=== PATIENT | female | born 1995 | race Caucasian/White ===

== ENCOUNTER 2018-01-12 02:08 | Emergency (ER) | payer BC ==
[2018-01-12 03:46] LABS: #Eosinphils 0.2 thou/uL (0.0-0.7); #Lymphocytes 1.7 thou/uL (1.20-3.40); #Monocytes 0.5 thou/uL (0.11-0.59); #Neutrophils 4.1 thou/uL (1.40-6.50); %Basophils 0.6 % (0.0-1.0); %Eosinophils 3.2 % (0.0-10.0); %Lymphocytes 25.8 % (28.0-48.0); %Monocytes 7.6 % (0.0-4.0); %Neutrophils 62.7 % (31.0-61.0); Hemoglobin 13.8 g/dL (12.0-16.0); Mean Corpuscular HGB CONC 33.3 g/dL (32.0-36.0); Mean Corpuscular Hemoglobin 28.8 pg (25.0-35.0); Mean Corpuscular Volume 86.4 fl (77.0-87.0); Mean Platelet Volume 6.5 fL (7.4-10.4); Platelet Count 302 thou/uL (130-400); RBC Distribution Width 12.2 % (11.5-14.5); Red Blood Cell (RBC) Count 4.81 mill/uL (4.00-5.20); White Blood Cell (WBC) Count 6.5 thou/uL (4.8-10.8)
[2018-01-12 04:06] LABS: ALT (SGPT) 26 U/L (8-55); AST (SGOT) 30 U/L (5-34); Albumin 4.5 g/dL (3.5-5.0); Alkaline Phosphatase 66 U/L (40-150); Anion Gap 13 mmol/L (10-20); BUN (Urea Nitrogen) 7 mg/dL (7.0-18.7); Bilirubin, Total 0.3 mg/dL (0.2-1.2); Calc. Creatinine Clearance 0 mL/min (70-130); Calcium 8.8 mg/dL (7.8-10.44); Carbon Dioxide 23 mmol/L (22-29); Chloride 112 mmol/L (98-107); Estimated GFR-MDRD Greater than 90; Globulin 3.1 g/dL (2.4-3.5); Glucose 77 mg/dL (70-105); Potassium 3.5 mmol/L (3.5-5.1); Protein, Total 7.6 g/dL (6.0-8.3); Sodium 144 mmol/L (136-145)
[2018-01-12 04:07] LABS: Acetaminophen Less than 6.0 mcg/mL (10.0-30.0); Alcohol 395 mg/dL (Less than 10); Salicylate Less than 8.0 mg/dL (15.0-30.0)
[2018-01-12 04:13] LABS: BHCG - Serum Negative (NEGATIVE); Pregs Control Background? CLEAR/WHITE (CLR/WHITE); Pregs Control Bar Appear? YES (CONTROL BAR)
--- NOTE | 2018-01-12 13:49 | CT ---
PRELIMINARY REPORT/[facility]/EMERGENCY AFTER HOURS PROCEDURE: EXAM: CT Head Without Intravenous Contrast CLINICAL HISTORY: 22 years old, female; Signs and symptoms; Altered mental status/memory loss; Patient HX: [facility] Unknown if fell. A&o x 1. Told bystanders she took xanax. Obvious ETOH; Albaro tional info: Pt combative for exam TECHNIQUE: Axial computed tomography images of the head/brain without intravenous contrast. COMPARISON: No relevant prior studies available. FINDINGS: Brain: Somewhat limited evaluation at the level of the skull base due to motion and streak artifacts. Otherwise no evidence of hemorrhage, mass effect or edema. Ventricles: No ventriculomegaly. Bones/joints: No acute fracture. Soft tissues: No acute findings. Sinuses: Bilateral maxillary sinus mucosal thickening/mucus retention cysts. No significant air-fluid levels. Mastoid air cells: No significant fluid. IMPRESSION: No acute intracranial findings. Thank you for allowing us to participate in the care of your patient. Dictated and Authenticated by: Surya Redd MD 01/12/2018 4:37 AM Central Time ([place] & [place]) FINAL REPORT NONCONTRAST HEAD CT: Date: 01/12/18 HISTORY: Patient was found down at [place]. COMPARISON: None. TECHNIQUE: Noncontrast head CT is performed from skull base to skull vertex. FINDINGS: Limited evaluation due to motion degradation. There is no acute intracranial process. No intracranial post-traumatic sequelae. This report is in agreement with the preliminary report by [facility]. POS: [facility]
--- NOTE | 2018-01-23 15:01 | EKG ---
Test Reason : Blood Pressure : / mmHG Vent. Rate : 090 BPM Atrial Rate : 090 BPM P-R Int : 152 ms QRS Dur : 086 ms QT Int : 390 ms P-R-T Axes : 064 047 050 degrees QTc Int : 477 ms Normal sinus rhythm Possible Left atrial enlargement Borderline ECG Confirmed by MELISSA LUNA ([id number]), editorial specialist RDAHA KNUTSON ([id number]) on 01/23/2018 3:00:15 PM Referred By: Confirmed By:MELISSA LUNA
== END 2018-01-12 05:29 | disposition home or self-care (01) ==
LOC: ERS 02:08 → EDBD 02:08 → ERS 05:29
DX: F10.129 Alcohol abuse with intoxication, unspecified (principal); Y90.8 Blood alcohol level of 240 mg/100 ml or more
CPT/HCPCS: 36415; 70450; 80053; 80307; 84703; 85025; 93005; 96360